=== PATIENT | male | born 1950 | race Two or more races ===

== ENCOUNTER 2019-07-04 19:48 | Inpatient (IN) | payer OTHER ==
--- NOTE | 2019-07-04 19:50 | ED ---
Neurological HPI - HPI Summary HPI Summary: 68 y/o M with hx epilepsy brought in by EMS from [place] accompanied by two correctional facility officers c/o intermittent seizures lasting 30-45 seconds starting 2 hours ago. Patient was found around 1800 today having seizures. EMS was called. EMS gave Ativan 4 mg IM and Versed 5 mg IM which improved seizure activity but patient continued having seizures en route. Medications reviewed. Patient is non-compliant with Keppra 750 mg BID and Depakote 230 mg BID per EMS. FSBG 127 at [place]. Hx hepatitis C. - History of Current Complaint Stated Complaint: SEIZURES PER EMS Hx Obtained From: EMS Onset/Duration: Started hours ago - 2, Resolved Timing: Intermittent Episodes Lasting: - 30-45 seconds Aggravating: Nothing Alleviating: Other - Ativan 4 mg IM and Versed 5 mg IM - Allergy/Home Medications Home Medications: Home Medications Divalproex DR TAB(*) [Depakote DR TAB(*)] 750 mg PO BID 07/04/19 [History Confirmed 07/04/19] levETIRAcetam [Keppra-] 1,500 mg PO BID 07/04/19 [History Confirmed 07/04/19] PMH/Surg Hx/FS Hx/Imm Hx Endocrine/Hematology History: Denies: Hx Diabetes Neurological History: Reports: Hx Seizures - epilepsy - Surgical History Surgery Procedure, Year, and Place: LEVEL 5 CAVEAT Surgical hx is limited secondary to AMS Infectious Disease History: Yes Infectious Disease History: Reports: Hx Hepatitis - C - Family History Family History: LEVEL 5 CAVEAT FHx is limited secondary to AMS - Social History Alcohol Use: None Substance Use Type: Reports: None Smoking Status (MU): Unknown if Ever Smoked Review of Systems Neurological/Mental Status: Other - seizure All Other Systems Reviewed And Are Negative: Yes Physical Exam - Summary Physical Exam Summary: Constitutional: Somnolent Skin: Warm, Dry HENT: Normocephalic; Atraumatic Eyes: Conjunctiva normal Neck: Musculoskeletal ROM normal neck. (-) JVD, (-) Stridor, (-) Nuchal rigidity Cardio: Rhythm regular, rate normal, Heart sounds normal; Intact distal pulses; Radial pulses are 2+ and symmetric. (-) Murmur Pulmonary/Chest wall: Effort normal. (-) Respiratory distress, (-) Wheezes, (-) Rales Abd: Soft, (-) tenderness, (-) Distension, (-) Guarding, (-) Rebound Musculoskeletal: (-) Edema Lymph: (-) Cervical adenopathy Neuro: Responds to painful stimuli, no focal deficits. GCS 9. Psych: Deferred Triage Information Reviewed: Yes Vital Signs Reviewed: Yes - Dalton Coma Scale Best Eye Response: 2 - To Pain Best Motor Response: 5 - Purposeful Movement Best Verbal Response: 2 - Incomprehensible Words Coma Scale Total: 9 Procedures - Sedation Patient Received Moderate/Deep Sedation with Procedure: No Diagnostics - Laboratory Lab Statement: Any lab studies that have been ordered have been reviewed, and results considered in the medical decision making process. - CT BRAIN CT Interpretation Completed By: Radiologist - IMPRESSION: 1. Mild asymmetric hyperdensity is identified of the left side of the tentorium. Although not definitive, minimal subdural hemorrhage cannot be excluded. A follow-up head CT in 12-24 hours is recommended. 2. Soft tissue swelling/hematoma of the posterosuperior scalp. 3. Motion artifact limits evaluation of the base of the brain, cerebellum, and left occipital lobe. Otherwise, there is no definitive acute territorial type infarct. 4. There is minimal periventricular white matter hypodensity, likely representing small vessel ischemic disease in a patient this age. 5. Mild atrophy. ED physician has reviewed this imaging report. Re-Evaluation - Re-Evaluation First Eval Re-Evaluation Time: 20:46 - [facility] radiologist called to report CT Brain findings Course/Dx - Course Course Of Treatment: 68 y/o male w hx seizures on keppra and depakote p/w seizures. - PE somnolent, no focal deficits. No signs of trauma. - BG 120s w EMS. Labs pending. CT head w possible SDH vs artifact. D/w NSGY who thinks likely artifact. CT Cspine pending. CXR ordered. - keppra loaded, depakote level pending. Given IVF. - admit to medicine, repeat head CT in 12-24 hours. - Diagnoses Provider Diagnoses: Seizure, Subdural hemorrhage - Physician Notifications Discussed Care Of Patient With: Marina Estrella - Will look at the CTs. 2132 He states the patient can stay here if there is no neurosurgical intervention. 2136 Dr. Mosley agrees to admit patient. Time Discussed With Above Provider: 20:50 - Critical Care Time Critical Care Time: 30-74 min - Upon my evaluation, this patient had a high probability of imminent or life-threatening deterioration due to seizures, SDH which required my direct attention, intervention, and personal management. I have personally provided 35 minutes of critical care time exclusive of time spent on separately billable procedures. Time includes review of laboratory data , radiology results, discussion with consultants, and monitoring for potential decompensation. Interventions were performed as documented above. Discharge ED - Sign-Out/Discharge Documenting (check all that apply): Patient Departure - Discharge Plan Condition: Stable Disposition: ADMITTED TO [facility] Referrals: No Primary Care Phys,NOPCP [Medical Doctor] - - Billing Disposition and Condition Condition: STABLE Disposition: Admitted to [facility] - Attestation Statements Document Initiated by Bob: Yes Documenting Scribe: Ila Benson Provider For Whom Bob is Documenting (Include Credential): Pavan Alegria MD Scribe Attestation: I, Ila Benson, scribed for Pavan Alegria MD on 07/04/19 at 2146. Scribe Documentation Reviewed: Yes Provider Attestation: The documentation as recorded by the teresaibeIla accurately reflects the service I personally performed and the decisions made by me, Pavan Alegria MD Status of Scribe Document: Viewed
[2019-07-04] MEDS ORDERED: levETIRAcetam 1000MG IVPREMIX* 1,000 MG/100 ML BAG IVPB ONE (19:56)
[2019-07-04] MEDS ORDERED: NS 0.9% 1000 ML** 1,000 ML IV ONE (21:41)
[2019-07-04 21:48] LABS: ABS Lymphocytes 1.1 10^3/ul (1.0-4.8); ABS Monocytes 0.6 10^3/ul (0-0.8); ABS Neutrophils 6.7 10^3/ul (1.5-7.7); Eosinophil % 0.2 %; Hematocrit 46 % (42-52); Hemoglobin 15.4 g/dL (14.0-18.0); Lymphocyte % 13.4 %; Mean Corpuscular HGB Conc 34 g/dL (31-36); Mean Corpuscular Hemoglobin 31 pg (27-31); Mean Corpuscular Volume 92 fL (80-94); Mean Platelet Volume 8.2 fL (7.4-10.4); Platelet Count 199 10^3/uL (150-450); Red Blood Count 4.98 10^6 /uL (4.18-5.48); Red Cell Distribution Width 16 % (10-15); White Blood Count 8.5 10^3/uL (3.5-10.8)
[2019-07-04 21:54] LABS: INR 1.07 (0.82-1.09)
[2019-07-04 22:05] LABS: BUN/Creatinine Ratio 16.3 (8-20); Calcium 9.6 mg/dL (8.6-10.3); EGFR African American 107.7 (>60); Globulin 4.1 g/dL (2-4); Total Bilirubin 0.3 mg/dL (0.2-1.0); Total Protein 8.1 g/dL (6.4-8.9)
[2019-07-04 22:24] LABS: Potassium 5.1 mmol/L (3.5-5.0)
[2019-07-05] MEDS ORDERED: levETIRAcetam 500 MG IVPREMIX* 500 MG/100 ML BAG IV SCH
--- NOTE | 2019-07-05 03:50 | HP ---
History of Present Illness - History of Present Illness Reason for Visit: seizures History of Present Illness: 68 year old male with past medical history of epilepsy was brought in from a correctional facility with complaints of intermittent seizures that started 2 hours ago. Patient was found around 1800 having seizures, all episodes lasting < 1 min. EMS was called, gave him a total of 4 mg IM of ativan and Versed 5 [address] IM [address]r. Pt takes keppra and depakote at home, but has a history of noncompliance. Vitals on arrival are stable. Initial lab values are benign other than for the depakote level that came back non-therapeutic. CT head showed mild asymmetric hyperdensity concerning for a small subdural hemorrhage. Additionally he has soft tissue swelling of the posterior region of the his scalp. Pt is too somnolent to offer any history. The guards with him did not see any trauma, nor does he have any signs of trauma. Dr. Marina Estrella was consulted, no surgical intervention but recommend repeat CT head in 12 hours. 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 - Past Surgical History Past Surgical History: Other - limited due to AMS - Past Family History Family History: Other - limited due to AMS - Past Social History Smoke: No Alcohol: None Drugs: None Lives: Other - correctional facility Review of Systems - Measurements Intake and Output: Intake and Output Last 24 Hours 07/02/19 07/03/19 07/04/19 07/05/19 06:59 06:59 06:59 06:59 Intake Total 1000 Balance 1000 Weight 198 lb 6.4 oz Intake: IV Fluids 1000 - Review of Systems General Comments: unable t obtain due to AMS Objective Active Medications: Heparin Sodium (Porcine) (Heparin Vial(*)) 5,000 units SUBCUT Q8HR [facility] Levetiracetam (Keppra Tab*) 1,500 mg PO BID [facility] Vital Signs - 8 hr 07/04/19 07/04/19 07/04/19 19:53 19:58 19:59 Temperature 97.8 F Pulse Rate 97 91 96 Respiratory 16 22 16 Rate Blood Pressure 125/83 115/83 (mmHg) O2 Sat by Pulse 96 93 92 Oximetry 07/04/19 07/04/19 07/04/19 20:00 20:29 21:00 Temperature Pulse Rate 95 91 Respiratory 20 21 23 Rate Blood Pressure 123/79 (mmHg) O2 Sat by Pulse 93 91 Oximetry 07/04/19 07/04/19 07/04/19 22:00 22:51 23:00 Temperature Pulse Rate 87 85 87 Respiratory 20 21 22 Rate Blood Pressure 115/64 (mmHg) O2 Sat by Pulse 93 95 95 Oximetry 07/04/19 07/04/19 07/04/19 23:21 23:33 23:51 Temperature Pulse Rate 89 86 87 Respiratory 20 21 21 Rate Blood Pressure 109/71 122/77 (mmHg) O2 Sat by Pulse 94 90 93 Oximetry 07/05/19 07/05/19 07/05/19 00:00 00:15 00:21 Temperature 97.8 F Pulse Rate 81 97 86 Respiratory 21 20 20 Rate Blood Pressure 140/92 129/90 (mmHg) O2 Sat by Pulse 97 99 94 Oximetry 07/05/19 07/05/19 00:40 03:15 Temperature 97.7 F 98.6 F Pulse Rate 96 96 Respiratory 24 18 Rate Blood Pressure 129/90 123/81 (mmHg) O2 Sat by Pulse 95 96 Oximetry Oxygen Devices in Use Now: None Appearance: somnolent, wakes up to voice. Answers some questions appropriately but falls back asleep very easily Eyes: No Scleral Icterus, PERRLA Neck: NL Appearance and Movements; NL JVP, Trachea Midline Respiratory: Symmetrical Chest Expansion and Respiratory Effort, Clear to Auscultation Cardiovascular: NL Sounds; No Murmurs; No JVD, No Edema Abdominal: NL Sounds; No Tenderness; No Distention Lymphatic: No Cervical Adenopathy Extremities: No Edema Skin: No Rash or Ulcers, No Nodules or Sclerosis Neurological: - - he is somnolent, oriented to self. Not oriented to location, situtation and time Result Diagrams: 07/04/19 21:30 07/04/19 21:30 Assess/Plan/Problems-Billing Assessment: - Patient Problems (1) Seizure Current Visit: Yes Status: Acute Code(s): R56.9 - UNSPECIFIED CONVULSIONS SNOMED Code(s): 53623749 Comment: hx of seizures, noncompliant with home medications loaded in the ED iwth radhara Pt wakes up to voice, but otherwise looks sedated, unable to take hx from him at this time. Neuro exam limited due to somnolence, but so far, nonfocal takes depakote and keppra at home. WIll resume both (2) Subdural hematoma Current Visit: Yes Status: Acute Code(s): S06.5X9A - TRAUM SUBDR HEM W LOC OF UNSP DURATION, INIT SNOMED Code(s): 593466913 Comment: no witnessed trauma. Likely could have hit his head during one of the several seizures he had today. Repeat CT head in the am hold DVT prophylaxis until then (3) DVT prophylaxis Current Visit: Yes Status: Acute Code(s): Z29.9 - ENCOUNTER FOR PROPHYLACTIC MEASURES, UNSPECIFIED SNOMED Code(s): 230482127 Comment: SCDs (4) Full code status Current Visit: Yes Status: Acute Code(s): Z78.9 - OTHER SPECIFIED HEALTH STATUS SNOMED Code(s): 562213478
[2019-07-05] MEDS ORDERED: Heparin VIAL(*) 5000 UNITS/ML VIAL (FIVE THOUSAND) SUBCUT SCH ×2 (06:00→14:00)
[2019-07-05 06:37] LABS: Calcium 9.1 mg/dL (8.6-10.3); Magnesium 1.9 mg/dL (1.9-2.7)
[2019-07-05 06:43] LABS: BUN/Creatinine Ratio 18.5 (8-20); EGFR African American 148.7 (>60); EGFR Non-African American 122.9 (>60)
[2019-07-05 06:52] LABS: Potassium 4.4 mmol/L (3.5-5.0)
[2019-07-05 08:46] LABS: ABS Lymphocytes 1.5 10^3/ul (1.0-4.8); ABS Monocytes 0.7 10^3/ul (0-0.8); ABS Neutrophils 6.1 10^3/ul (1.5-7.7); Eosinophil % 0.2 %; Hematocrit 46 % (42-52); Hemoglobin 15.6 g/dL (14.0-18.0); Lymphocyte % 18.1 %; Mean Corpuscular HGB Conc 34 g/dL (31-36); Mean Corpuscular Hemoglobin 31 pg (27-31); Mean Corpuscular Volume 91 fL (80-94); Mean Platelet Volume 8.4 fL (7.4-10.4); Nucleated Red Blood Cells % 0.1; Platelet Count 175 10^3/uL (150-450); Red Blood Count 5.02 10^6 /uL (4.18-5.48); Red Cell Distribution Width 15 % (10-15); White Blood Count 8.4 10^3/uL (3.5-10.8)
--- NOTE | 2019-07-05 08:58 | PN ---
Subjective Date of Service: 07/05/19 Interval History: Alert and oriented x 3. Pt denies any seizure episodes today. pt reports that he never knows prior to seizure activity, has never had any aura's. pt also denies noncompliance with seizure medication. pt reports taking both medications twice daily. Pt reports last seizure activity was approx. 2 months ago and reports multiple seizure episodes yearly. Family History: Unchanged from Admission Social History: Unchanged from Admission Past Medical History: Unchanged from Admission - Right ankle surgical repair, facial reconstruction surgery Objective Active Medications: Levetiracetam (Keppra Tab*) 1,500 mg PO BID [facility] Vital Signs - 8 hr 07/05/19 07/05/19 03:15 08:00 Temperature 98.6 F Pulse Rate 96 Respiratory 18 18 Rate Blood Pressure 123/81 (mmHg) O2 Sat by Pulse 96 Oximetry Oxygen Devices in Use Now: None Appearance: Elderly gentlman laying in bed watching TV. Does not appear to be in any distress. Eyes: No Scleral Icterus, PERRLA Ears/Nose/Mouth/Throat: NL Teeth, Lips, Gums - Edentulous, Clear Oropharnyx, Mucous Membranes Moist Neck: NL Appearance and Movements; NL JVP, Trachea Midline, No Thyroid Enlargement, Masses Respiratory: Symmetrical Chest Expansion and Respiratory Effort, Clear to Auscultation Cardiovascular: NL Sounds; No Murmurs; No JVD, RRR, No Edema Abdominal: NL Sounds; No Tenderness; No Distention, No Hepatosplenomegaly Lymphatic: No Cervical Adenopathy Extremities: No Edema, No Clubbing, Cyanosis Skin: No Rash or Ulcers, No Nodules or Sclerosis Neurological: Alert and Oriented x 3, NL Sensation, NL Muscle Strength and Tone Nutrition: Taking PO's Result Diagrams: 07/05/19 08:05 07/05/19 06:08 Assess/Plan/Problems-Billing Assessment: 68 yo gentleman with hx significant for epilepsy pt arrives to ER for multiple seizure episodes last evening. - Patient Problems (1) Seizure Comment: -hx of seizures -Per long-term notes pt is noncompliant with keppra and depakote. Pt denies noncompliance however Valproic Acid level was nontherapeutic. -loaded in the ED with keppra -pt is alert and oriented x 3 at this time. No seizure activity reported since arrival to hospital. -Continue Keppra and Depakote while in hospital -Continue to monitor for seizure activity. -leviteracetam level ordered -Recheck depakote level in AM -EEG ordered for today -Consult to Dr. Holcomb (2) Subdural hematoma Comment: -Brain CT while in ER suggestive for subdural hematoma -Repeat CT this AM shows no hematoma or hemorrhage (3) DVT prophylaxis Comment: -SCDs -Heparin SQ (4) Full code status Status and Disposition: Guarded Inpatient
[2019-07-05] MEDS ORDERED: levETIRAcetam TAB* 500 MG PO SCH (09:00)
[2019-07-05] MEDS ORDERED: Divalproex DR TAB(*) 250 MG PO SCH (10:00)
--- NOTE | 2019-07-05 13:19 | EEG ---
ELECTROENCEPHALOGRAPHY: DATE OF STUDY: 07/05/19 - ROOM #[id number] ORDERED BY: Abdullahi Rodriguez NP CLINICAL PROBLEM: The patient is a 68-year-old man with history of epilepsy who presented with seizures. This EEG was obtained to evaluate for epileptiform abnormalities or electrographic seizures. CLINICAL STATE: Awake and drowsiness. REPORT: The waking background showed appropriate organization with clearly defined anterior-posterior voltage and frequency gradients. There was a well- defined posterior dominant rhythm of 9 Hz which was symmetrical and showed normal reactivity. Anteriorly, there was an expected pattern of lower voltage, irregular, mixed fast frequencies. Attenuation of the occipital rhythm accompanied drowsiness. Most prominent feature of this recording were rare, intermittent 2-3 Hz delta frequency slowing over the right frontotemporal region, maximal at F8 and T4. These lasted for 1-2 seconds. There were no epileptiform discharges. There was no clinical correlation. Throughout the recording, there were no epileptiform discharges. CLINICAL IMPRESSION: This is a abnormal EEG due to the presence of rare intermittent slowing over the right frontotemporal region. There were no epileptiform discharges. These findings are suggestive of a focal neuronal dysfunction involving the right frontotemporal region. [id number]/[facility] #: [id number] [facility]AMPUSDaljit
[2019-07-05 13:35] LABS: Phosphorus 3.2 mg/dL (2.5-5.0)
[2019-07-05 14:12] LABS: Urine Benzodiazepine Screen Presumptive Positive (None Detect); Urine Opiates Screen None Detected (None Detect)
[2019-07-05 14:15] LABS: Urine Appearance Clear; Urine Bilirubin Negative (Negative); Urine Blood Negative (Negative); Urine Color Yellow; Urine Glucose Negative (Negative); Urine Ketones Negative (Negative); Urine Nitrite Negative (Negative); Urine Protein Negative (Negative); Urine Specific Gravity 1.017 (1.010-1.030); Urine Urobilinogen Negative (Negative)
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
[2019-07-05 15:40] VITALS: BP 125/73
--- NOTE | 2019-07-05 21:28 | DS ---
DISCHARGE SUMMARY: DATE OF ADMISSION: 07/04/19 DATE OF DISCHARGE: 07/05/19 PROVIDER: Ford Zaragoza NP. PRIMARY CARE PROVIDER: [facility]. ATTENDING PHYSICIAN WHILE IN THE HOSPITAL: Dr. Risa Melgar * (dictated by Ford Zaragoaz NP). PRIMARY DIAGNOSIS: Seizures. SECONDARY DIAGNOSIS: None. STUDIES WHILE IN THE HOSPITAL: 1. On 07/04/19, CT brain without contrast: Mild asymmetric hyperdensity is identified on the left side of the tentorium, although not definitive, minimal subdural hemorrhage cannot be excluded. Followup head CT in 12 to 24 hours is recommended. Soft tissue swelling hematoma of the posterior scalp, motion artifact limits evaluation of the brain, cerebellum and left occipital lobe. Otherwise, there is no definitive acute territorial type infarct. There is minimal periventricular white mater hypodensity likely representing small vessel ischemic disease in patients of this age and mild atrophy. 2. On 07/04/19, chest x-ray: Relatively low lung volumes with bilateral patchy alveolar and interstitial opacities, which may represent subsegmental atelectasis or bronchopneumonia correlated with clinical assessment. 3. On 07/05/19, brain CT: Negative for interval change and subtle asymmetric thickening of the left tentorium cerebelli in reference to coronal reformatted series. Given stability compared with the exam of one day prior, this likely represents normal variation on the thickness of the tentorium and variant calcification. No compelling evidence for extra-axial hemorrhage. No acute intra- cranial process is evident. 4. On 07/05/19, EEG: This is an abnormal EEG due to the presence of rare intermittent slowing over the right frontotemporal region. There were no epileptiform discharges. These findings are suggestive for focal neuronal dysfunction involving the right frontotemporal region. CONSULTATIONS WHILE IN THE HOSPITAL: Dr. Johnnie Holcomb from Neurology. PERTINENT LABS WHILE IN THE HOSPITAL: On 07/05/19, white blood cell 8.4, hemoglobin 15.6, hematocrit 46, platelet count 175. Sodium 134, potassium 4.4, chloride 106, carbon dioxide 21, anion gap 7, BUN 12, creatinine 0.65. Calcium 9.1, phosphorus 3.2, magnesium 1.9. Coagulation, INR 1.07. Valproic acid 80. HISTORY OF PRESENT ILLNESS AND HOSPITAL COURSE: Mr. Hart is a 68-year-old gentleman with past medical history significant for seizures. The patient arrives to the emergency department on 07/04/19 from [facility] with complaints of intermittent seizures for approximately 2 hours. The patient was found having multiple seizures prior to arrival to the hospital , lasting less than 1 minute. Please see history and physical by Dr. Mariam Mosley for complete summary of events leading up to the hospitalization. While in the ER, the patient was too somnolent to offer any medical history, the [facility] guards did not witness any trauma nor does the patient have any signs of trauma. While in the ER, the patient did have a CT scan, which was suggestive of subdural hematoma, for which Dr. Estrella was consulted and suggested that he have a repeat CT scan in 12 hours. Also, Mr. Hart was loaded with Keppra. The patient did not exhibit any seizure activity while in the hospital. Per medical records from [facility], Mr. Hart has been noncompliant with taking his Keppra and Depakote. Following being loaded in the ER with Keppra and switched to p.o. Keppra 1500 mg, also receiving his normal dose of 750 mg divalproex, the patient remained free of seizure activity. In consultation with Dr. Holcomb, he suggests that the patient be discharged today as it appears that despite the patients report of taking his medication as prescribed the subtherapeutic Keppra level of 47 on arrival suggests otherwise. The re-draw of patients depakote level on 07/05/19 reveals an increased serum concentration of 80, with relative certainty the patient has not been taking his medication as prescribed. Although the Keppra levels have not been obtained yet as it is a send-out lab. It could be reasonably surmised that the patient was not taking Keppra as ordered either. I feel at this time that the patient is stable for discharge back to [facility]. PHYSICAL EXAMINATION: Please see progress note from 07/05/19 by Ford Zaragoza for full physical exam. Mr. Hart is stable for discharge. Most recent set of vital signs: 98.5 temp, 95 heart rate, 21 respirations, 92% oxygenation on room air, blood pressure is 125/73. DISCHARGE MEDICATIONS: Medications were not changed or added. The patient will continue: 1. Levetiracetam 1500 mg by mouth b.i.d. 2. Depakote 750 mg p.o. b.i.d. DISCHARGE PLAN: The patient may maintain regular diet. May resume regular activity as tolerated. He had lab works drawn on arrival that showed your Depakote level to be 47, which is subtherapeutic. You were medicated in the hospital and your Depakote level was rechecked, which was revealed serum concentration of 80, which is a therapeutic level. This would suggest that you were not taking your medication as prescribed. If you want to avoid future seizures, you should be taking your medications regularly as ordered. Your Keppra level was also drawn, but this is a send-out lab, so immediate levels are not available. If you have further seizure activity, you should return to the hospital. Also, if you develop any chest pain, shortness of breath, dizziness or other concerning symptoms, seek medical attention immediately. Follow up with your medical provider [facility]. Wash your hands frequently. Maintain at least 6 feet separation from other people when able. This is a summarized report of Mr. Hart's medical history and hospital stay. For further details, please see the entire medical record. TIME SPENT: Approximately 45 minutes was spent on this discharge. FORD ZARAGOZA, THANH [id number]/[facility] #: [id number] ROSALIA
== END 2019-07-05 17:45 | DRG 53 ==
LOC: ED 19:48 → MEDTELE 23:58
PROVIDERS: ADMIT Student in an Organized Health Care Education/Training Program; ATTEND Hospitalist
PROC: 4A10X4Z Monitoring of Central Nervous Electrical Activity, External Approach (ICD-10-PCS; principal; 2019-07-05)
DX: G40.802 Other epilepsy, not intractable, without status epilepticus (principal); R40.2122 Coma scale, eyes open, to pain, at arrival to emergency department; R40.2222 Coma scale, best verbal response, incomprehensible words, at arrival to emergency department; R40.2352 Coma scale, best motor response, localizes pain, at arrival to emergency department; G93.89 Other specified disorders of brain; Z86.19 Personal history of other infectious and parasitic diseases; Z91.19 Patient's noncompliance with other medical treatment and regimen; Z91.410 Personal history of adult physical and sexual abuse; Z79.899 Other long term (current) drug therapy
CPT/HCPCS: 36415; 70450; 71045; 72125; 80048; 80053; 80164; 80177; 80307; 81003; 83735; 84100; 85025; 85610; 95816; 96365; 99284; A9270-GY; G0480; J1644; J1953